=== PATIENT | female | born 1975 | race Caucasian/White ===

== ENCOUNTER 2018-05-04 12:44 | Emergency (ER) | payer MEDICAID, OTHER ==
[2018-05-04] MEDS: ONDANSETRON (ODT) 4 MG TAB ODT (13:43)
[2018-05-04] MEDS: KETOROLAC 30 MG INJ IM (13:43)
[2018-05-04 13:44] LABS: URINE BLOOD (Dip) POC Negative (NEGATIVE); URINE KETONES (Dip) POC Trace (NEGATIVE); URINE LEUKOCYTE EST (Dip) POC Negative (NEGATIVE); URINE NITRITE (Dip) POC Negative (NEGATIVE); URINE TOTAL PROTEIN POC Negative (NEGATIVE)
== END 2018-05-04 14:26 | disposition home or self-care (01) ==
LOC: FTE 12:44
DX: G43.909 Migraine, unspecified, not intractable, without status migrainosus (principal); E11.9 Type 2 diabetes mellitus without complications; Z79.84 Long term (current) use of oral hypoglycemic drugs
CPT/HCPCS: 81003; 82962; 96372; 99284-25